=== PATIENT | female | born 1980 | race Caucasian/White ===

== ENCOUNTER 2019-07-21 13:21 | Emergency (ER) | payer OTHER ==
[~2019-07-21] VITALS: Ht 170.2 cm; Wt 113.4 kg
--- OUTSIDE RECORDS SUMMARY | ~2019-07-21 | XMS | Encounter Summary ---
Demographics + + + | Address | [address] | | | [place] [address] | + + + | Home Phone | | + + + | Preferred Language | Unknown | + + + | Marital Status | Single | + + + | Mandaeism Affiliation | Unknown | + + + | Race | Unknown | + + + | Ethnic Group | Other Race | + + + Author + + + | Author | Formerly [facility] | + + + | Organization | [facility] | + + + | Address | Unknown | + + + | Phone | Unavailable | + + + Care Team Providers + +------+ + | Care Spring Assembler Name | Role | Phone | + +------+ + PCP | Unavailable | + +------+ + Encounter Details +--------+ + + + + | Date | Type | Department | Care Team | Description | +--------+ + + + + | 09/13/ | Lab | LAB SURGICAL | DamonPeña jacinto, | | | 2018 | Requisition | PATHOLOGY [address] | MD [address] [facility] | | | | | [address] | Dept/[facility], | | | | | [place], [place] | [place] [address] | | | | | [address] | [phone] | | | | | | | [...] | Electronically | | Pathologic | biopsy ([id number]; | | DEPARTMENT | signed by | | Diagnosis | 09/03/18): - Mild portal | | OF | Robert Miller | | | inflammation, reactive | | PATHOLOGY | Lanckajal, | | | biliary changes and | | | ,PhD on | | | focal cholate stasis | | | 09/19/2018 at | | | [see comment] - Minimal | | | 2:55 PM | | | macrovesicular steatosis | | [...] follow-up | | | | | | information.Robert | | | | | | MD Talon, PhD | | | | | | | | | | | | PathologistPathology, | | | | | | Formerly [facility] & [employer] | | | | | | [place] PAS/D is | | | | | [...] | | DEPARTMENT | | | | [facility] | | OF | | | | [place], [place] | | PATHOLOGY | | | | [id number] Accession | | | | | | Number: [id number] | | | | | | Collection [...] | + + + + + | [facility] | [address] | [place] [address] | | | PATHOLOGY | [address] | | | + + + + + documented in this encounter Visit Diagnoses + + | Diagnosis | + + | Cholecystitis Cholecystitis, unspecified | + + documented in this encounter
--- OUTSIDE RECORDS SUMMARY | ~2019-07-21 | XMS | Encounter Summary ---
Demographics + + + | Address | [address] | | | [place] [address] | + + + | Home Phone | | + + + | Preferred Language | Unknown | + + + | Marital Status | Single | + + + | Restorationist Affiliation | Unknown | + + + | Race | Unknown | + + + | Ethnic Group | Other Race | + + + Author + + + | Author | [facility]ly [facility] | + + + | Organization | [facility] | + + + | Address | Unknown | + + + | Phone | Unavailable | + + + Care Team Providers + +------+ + | Care Area Sales Manager Name | Role | Phone | + [...] PATHOLOGY [address] | MD [address] [facility] | | | | | [address] | Dept/[facility], | | | | | [place], [place] | [place] [address] | | | | | [address] | [phone] | | | | | | | [...] | Electronically | | Pathologic | biopsy ([id number]; | | DEPARTMENT | signed by | [...] | | | | | | Formerly [facility] & [employer] | | | | | | [place] PAS/D is | | | | | [...] | | OF | | | | [place], [place] | | PATHOLOGY | | | | [id number] Accession | | | | | | Number: [id number] | | | | | | Collection [...] | + + + + + | [facility] | [address] | [place] [address] | | | PATHOLOGY | [address] | | | + + + + + documented in this encounter Visit Diagnoses + + | Diagnosis | + + | Cholecystitis Cholecystitis, unspecified | + + documented in this encounter
--- OUTSIDE RECORDS SUMMARY | ~2019-07-21 | XMS | Clinical Summary ---
Demographics + + + | Address | [address] | | | [place] [address] | + + + | Home Phone | | + + + | Preferred Language | Unknown | + + + | Marital Status | Single | + + + | Sabianism Affiliation | Unknown | + + + [...] Team Providers + +------+ + | Care Digital Community Manager Name | Role | Phone | + +------+ + PCP | Unavailable | + +------+ + Source Comments FERMIN is fully live on both [facility] Ambulatory and [facility] InPatient.[facility] Allergies Not on File Medications Not on [...] Signs Not on file Plan of Treatment Not on file Results Not on filefrom Last 3 Months"
--- OUTSIDE RECORDS SUMMARY | ~2019-07-21 | XMS | Clinical Summary ---
Demographics + + + | Address | [address] | | | [place] [address] | + + + | Home Phone | | + + + | Preferred Language | Unknown | + + + | Marital Status | Single | + + + | Bahai Affiliation | Unknown | + + + [...] Team Providers + +------+ + | Care Foundry Worker General Name | Role | Phone | + +------+ + PCP | Unavailable | + +------+ + Source Comments FERMIN is fully live on both [facility] Ambulatory and [facility] InPatient.[facility] Allergies Not on File Medications Not [...]
[~2019-07-21 13:21] MED LIST: ADVAIR 100-501 EACH INH; BIOTIN1 MG PO; CELEBREX200 MG PO; CLARITIN10 M2 PO; CYCLOBENZAPRINE10 MG PO; LEXAPRO5 MG PO; LITHIUM CARBON300 MG PO; POTASSIUM600 MG PO; PRAZOSIN HCL1 MG PO; PROAIR HFA8.5 GM INH
== END 2019-07-21 14:48 | disposition home or self-care (01) ==
LOC: ED 13:21
DX: S89.91XA Unspecified injury of right lower leg, initial encounter (principal); X50.9XXA Other and unspecified overexertion or strenuous movements or postures, initial encounter; F31.9 Bipolar disorder, unspecified; F32.9 Major depressive disorder, single episode, unspecified; F43.10 Post-traumatic stress disorder, unspecified; Z88.5 Allergy status to narcotic agent; Z88.0 Allergy status to penicillin; Z79.899 Other long term (current) drug therapy
CPT/HCPCS: 73560; 73610; 99283-25

== ENCOUNTER 2020-03-08 07:45 | Day surgery (SDC) | payer OTHER ==
--- NOTE | 2020-02-24 17:47 | NUR ---
PATIENT SEEN TODAY ON 02/24/20 FOR RIGHT TOTAL KNEE WITH VIK SCHEDULED ON 03/08/20. PATIENT REPORTS LIVING IN A TRAVEL TRAILER AT [facility] WITH HER SIGNIFICANT OTHER. REPORTS 2 [address]PS INTO HOME WITH NO RAIL. PATIENT STATES SHE DOES NOT HAVE A FWW OR SHOWER CHAIR, [facility]ERT [employer] PAMPHLET AND LOAN AGREEMENT PAPERWORK PROVIDED. PATIENT STATES SHE WILL F/U WITH ROBERT, ADVISED TO BRING IN FWW ON DAY OF PROCEDURE, VERBALIZED UNDERSTANDING. PATIENT STATES SHE USES [employer] SHOWER SITE. PATIENT TO MAKE ARRANGEMENTS TO USE [facility] SIDE OF FACILITYS WITH WALK-IN SHOWER AND HAND-HELD SHOWER HEAD WITH RV 3D ARTIST. PATIENT DECLINES NEED FOR HOME HEALTH AND STATES SHE ALREADY USES MEDICAL TRANSPORT. PATIENT SCHEDULED FOR JOINT BOOT CAMP AT [facility] OUTPATIENT P/T ON 02/25/20 @9 AM. PATIENT WILL CONTINUE P/T AT SAME SITE AND WILL USE MEDICAL TRANSPORT FOR APPOINTMENTS. PATIENT STATES SIGNIFICANT OTHER WILL PROVIDE ASSISTANCE AT HOME ONCE DISCAHRGED.
[~2020-03-08] VITALS: Ht 170.2 cm; Wt 104.3 kg
[~2020-03-08 07:45] MED LIST changes: +CETIRIZINE HCL10 MG PO; +IRON18 MG PO; +PHENTERMINE H37.5 MG PO; +VITAMIN C1000 MG PO
--- NOTE | 2020-03-08 10:52 | NUR ---
03/08/20 1051 Sheets,Josephine 1041 PT ARRIVED TO PACU ON 6L VIA MASK WITH ORAL AIRWAY IN PLACE. JAW THRUST USED OFF AND ON TO MAINTAIN AIRWAY. 1042 JAW THURST NO LONGER NEEDED, PT REAMINS NONAROUSBALE TO PAINFUL STIMULI. CRYO CUFF IN PLACE.
--- NOTE | 2020-03-08 11:15 | NUR ---
PATIENT BACK TO FLOOR FROM PACU, BEDSIDE REPORT FROM ARA CURRY. PATIENT AWAKE 2L NC ON 98% O2 SAT. PROVIDED ICE WATER AND SNACK. DRESSING INTACT, KRYO IN PLACE. CALL LIGHT WITHIN REACH. NO OTHER NEEDS AT THIS TIME.
--- NOTE | 2020-03-08 12:20 | NUR ---
PATIENT SATURATED SHEETS WITH URINE AFTER SNEEZING. PROVIDED BED CHANGE. PATIENT EYES WATERING AND NOSE RUNNING, PATIENT STATED " THIS STARTED ALL OF A SUDDEN" PROVIDED PATIENT WITH TISSUES. PATIENT TOLERATING FOOD AND DRINK, NO NAUSEA. RATES PAIN 0/10 ON PAIN SCALE.
--- NOTE | 2020-03-08 13:30 | NUR ---
PATIENT ATTEMPTED TO TRANSFER TO [facility]. DANGLED AT SIDE OF BED WELL, WITH 2 PERSON ASSIST. PATIENT THEN TREMBLED AND UNABLE TO BEAR WEIGHT. BACK TO BED PLACED BED CRAIN. CALL LIGHT WITHIN REACH.
--- NOTE | 2020-03-08 13:45 | NUR ---
PHYSICAL THERAPY TO ROOM TO EVALUATE.
--- NOTE | 2020-03-08 14:30 | NUR ---
PATIENT TO MED/SURG SUCCESSFULLY DID STAIRS. BACK TO ROOM. PHYSICAL THERAPY OKAYED TO GO HOME. VSS. CALL LIGHT WITHIN REACH.
[2020-03-08] MEDS ORDERED: CELECOXIB200 MG PO (15:30)
[2020-03-08] MEDS ORDERED: ASPIRIN EC325 MG PO (15:30)
[2020-03-08] MEDS ORDERED: GABAPENTIN600 MG PO (15:31)
[2020-03-08] MEDS ORDERED: SENNA LAX8.6 MG PO (15:31)
[2020-03-08] MEDS ORDERED: OXYCODONE HCL5 MG PO (15:31)
--- NOTE | 2020-03-08 16:00 | NUR ---
PATIENT ATTEMPTED TO DRESS WHEN SATURATED PAD AND PANTS WITH URINE. UP TO BSC, PATIENT ABLE TO VOID 250 ML. PATIENT THEN BLADDERSCAN >1,[address] MALAGON, VERBAL ORDER FOR STRAIGHT CATH. PATIENT TOLERATED PROCEDURE WELL. 1,100 ML OF URINE DRAINED INTO URINE BAG. PVR ZERO. PATIENT BACK TO BED, INSTRUCTED TO SIP ON FLUIDS AND WHEN ABLE TO VOID AGAIN TO CALL. CALL LIGHT WITHIN REACH.
--- NOTE | 2020-03-08 16:45 | NUR ---
BLADDER SCAN PATIENT 200 ML, UP TO BSC VOIDED 250 ML. PVR 0. PROVIDED PATIENT WITH DISCHARGE INSTRUCTION, PATIENT HAS GIANNI DRESSING FOR APPOINMENT IN OFFICE. ANSWERED QUESTIONS AND CONCERNS. VSS. PROVIDED WHEELCHAIR RIDE TO FRONT. PATIENT TRANSFERED INTO [facility].
--- NOTE | 2020-03-09 08:18 | OR ---
[facility] [address] [place], [place] [address] Signed DATE OF OPERATION: 03/08/2020 SURGEON: Ronald Benavidez MD PREOPERATIVE DIAGNOSIS: Severe degenerative joint disease, right knee. POSTOPERATIVE DIAGNOSIS: Severe degenerative joint disease, right knee. PROCEDURE: Right total knee arthroplasty with Zack. PROFESSOR OF ENVIRONMENTAL SCIENCE: 1. Sanam Mcfarlane PA-C. Sanam was present and critical for all portions of procedure. 2. Clinical PAS. ANESTHESIA: Spinal. BLOOD LOSS: 200 mL. TOURNIQUET TIME: Zero. IMPLANTS: Bob Triathlon size 3 femur, size 4 tibia, 9 mm poly, and 35 mm patella. BRIEF HISTORY: Dee Dee is a 39-year-old female with progressive worsening of arthritis in valgus knee. Nonoperating treatment was unsuccessful in managing her symptoms. She wished to proceed with knee replacement. Risks and benefits of operative treatment were discussed with her and she elected to proceed. DESCRIPTION OF PROCEDURE: Once consent was obtained, she was taken to the operating room after adequate anesthesia was placed on operating room table. All downside pressure points were well padded. The right leg was prepped and draped in a standard sterile fashion. No tourniquet was Electronically Signed By: RONALD BENAVIDEZ MD 03/09/20 0818 PATIENT NAME: DEE DEE NUÑEZ OPERATIVE REPORT DATE OF : 76 REPORT #: [id number] PHYSICIAN: RONALD BENAVIDEZ MD PCP: AALIYAH BURT MD REPORT IS CONFIDENTIAL AND NOT TO BE RELEASED WITHOUT AUTHORIZATION [facility] [address] [place], [place] [address] Signed placed. The knee was approached through standard anterior incision, taken through skin and subcutaneous tissue. Sub-vastus arthrotomy was performed and the infrapatellar fat pad was excised, the MCL was elevated with a sleeve around the posteromedial corner. All bleeders were cauterized as we went. The anterior horn of the lateral meniscus was gone. Anterior horn of the medial meniscus was transected as was the ACL. The PCL was found to be intact. The knee was flexed and the checkpoints and computer rays were placed in the femur and tibia and the leg was registered with the computer. Checkpoints were then registered on the distal femur and proximal tibia. Once this was accomplished, the osteophytes removed and soft tissue tension poses were taken. Adjustments were then made to the computer by increasing the valgus 3 degrees on the tibia. The robot was then brought in and the proximal tibial cut was made. The three cuts were made on the femur with straight blade, 2 cuts with the curved blade. The bone was then excised. Trials were then positioned. The knee was taken into full extension. The knee was quite stable throughout. The flexion and extension gaps were symmetric and matched our plan. The patella was cut, sized and drilled for 35 patella. The distal femoral drill holes were made and tibia was finished using the keel punch and given her age, we did decide use a non-cemented prosthesis. Drill holes were made in the tibia. The tibia was impacted in position first followed by the polyethylene. The femur was impacted in position first. The knee was extended and nicely loaded. The patella was clamped into position and the clamp was removed. The knee was taken through range of motion and again found to be stable and met our preoperative plan. Periarticular soft tissues were injected with 100 mL of ropivacaine and Toradol mixture. The On-Q pain pump was placed percutaneously into the adductor canal from suprapatellar pouch. The wound was copiously irrigated with antibiotic solution and the arthrotomy was closed using #2 Stratafix, #0 Stratafix for subcutaneous tissue and ZipLine for the skin. A GIANNI wound VAC dressing was applied with Puneet wrap. She was awakened and taken to the recovery room in satisfactory condition. All sponge, needle, and instrument counts were correct. Ronald Benavidez MD BA/MODL /[id number] Copies: Electronically Signed By: RONALD BENAVIDEZ MD 03/09/20 0818 PATIENT NAME: DEE DEE NUÑEZ OPERATIVE REPORT DATE OF : 76 REPORT #: [id number] PHYSICIAN: RONALD BENAVIDEZ MD PCP: AALIYAH BURT MD REPORT IS CONFIDENTIAL AND NOT TO BE RELEASED WITHOUT AUTHORIZATION [address] [place] [address] Signed ~ Electronically Signed By: RONALD BENAVIDEZ MD 03/09/20 0818 PATIENT NAME: DEE DEEFRANCINE HAMPTON OPERATIVE REPORT DATE OF : 76 REPORT #: [id number] PHYSICIAN: RONALD BENAVIDEZ MD PCP: AALIYAH BURT MD REPORT IS CONFIDENTIAL AND NOT TO BE RELEASED WITHOUT AUTHORIZATION
== END 2020-03-08 16:45 | disposition home or self-care (01) ==
LOC: DS 07:45
PROVIDERS: Specialist
PROC: 8E0YXBZ Computer Assisted Procedure of Lower Extremity (ICD-10-PCS; 2020-03-08)
PROC: 0SRC0JA Replacement of Right Knee Joint with Synthetic Substitute, Uncemented, Open Approach (ICD-10-PCS; principal; 2020-03-08 09:00)
DX: M17.11 Unilateral primary osteoarthritis, right knee (principal); K21.9 Gastro-esophageal reflux disease without esophagitis; J45.909 Unspecified asthma, uncomplicated; F41.9 Anxiety disorder, unspecified; G47.30 Sleep apnea, unspecified; F17.210 Nicotine dependence, cigarettes, uncomplicated; E66.01 Morbid (severe) obesity due to excess calories; Z68.35 Body mass index [BMI] 35.0-35.9, adult; Z79.899 Other long term (current) drug therapy; Z88.0 Allergy status to penicillin; Z88.5 Allergy status to narcotic agent
CPT/HCPCS: 01402; 64447; 64450; 76942; 84703; 97110; 97116; 97162; C1776; J0690; J0735; J1100; J1885; J2001; J2250; J2405; J2704; J2765; J2795; J3010; J7121

== ENCOUNTER 2020-03-13 15:59 | Emergency (ER) | payer OTHER ==
[~2020-03-13] VITALS: Ht 170.2 cm; Wt 104.3 kg
--- OUTSIDE RECORDS SUMMARY | ~2020-03-13 | XMS | Encounter Summary ---
Demographics + + + | Address | [address] | | | [place] [address] | + + + | Home Phone | | + + + | Preferred Language | Unknown | + + + | Marital Status | Single | + + + | Rastafari Affiliation | Unknown | + + + | Race | Unknown | + + + | Ethnic Group | Not or | + + + Author + + + | Author | [facility] | + + + | Organization | [facility] | + + + | Address | Unknown | + + + | Phone | Unavailable | + + + Support + + +---------+ + | Name | Relationship | Address | Phone | + + +---------+ + | Gemma Garcia | ECON | Unknown | | + + +---------+ + Care Team Providers + +------+ + | Care Builder Operator Name | Role | Phone | + +------+ + | Rashad Luna MD | PCP | | + +------+ + Encounter Details +--------+ + + + + | Date | Type | Department | Care Team | Description | +--------+ + + + + | 09/13/ | Lab | LAB SURGICAL | Peña Burnette, | | | 2019 | Requisition | PATHOLOGY [address] | [address] | | | | | [address] | Dept/[facility], | | | | | [place], [place] | [place] [address] | | | | | [address] | [phone] | | | | | | | | +--------+ + + + + Social History + +-------+ +--------+------+ | Tobacco Use | Types | Packs/Day | Years | Date | | | | | Used | | + +-------+ +--------+------+ | Never Assessed | | | | | + +-------+ +--------+------+ + + + | Sex Assigned at | Date Recorded | | | | + + + | Not on file | | + + + + + + + | Job Start Date | Occupation | Industry | + + + + | Not on file | Not on file | Not on file | + + + + + + + + | Travel History | Travel Start | Travel End | + + + + + + | No recent travel history available. | + + documented as of this encounter Plan of Treatment Not on filedocumented as of this encounter Procedures + +--------+ + + + | Procedure Name | Priori | Date/Time | Associated Diagnosis | Comments | | | ty | | | | + +--------+ + + + | PATHOLOGY CONSULT - | Routin | 09/03/2018 | Cholecystitis | Results for this | | REVIEW OUTSIDE | e | 9:09 AM | | procedure are in the | | SLIDES | | PST | | results section. | + +--------+ + + + documented in this encounter Results PATHOLOGY CONSULT - REVIEW OUTSIDE SLIDES (09/03/2018 9:09 AM PST) + + + + + + | Component | Value | Ref Range | Performed | Pathologist | | | | | At | Signature | + + + + + + | Clinical | Liver biopsy at time of | | [facility] | | | History | cholecystectomy due to | | DEPARTMENT | | | | elevated liver chemistry | | OF | | | | tests. | | PATHOLOGY | | + + + + + + | Final | Liver, core needle | | [facility] | Electronically | | Pathologic | biopsy ([id number]; | | DEPARTMENT | signed by | | Diagnosis | 09/03/18): - Mild portal | | OF | Zoroastrian | | | inflammation, reactive | | PATHOLOGY | [place] on | | | biliary changes and | | | 09/19/2018 at | | | focal cholate stasis | | | 2:55 PM | | | [see comment] - Minimal | | | | | | macrovesicular steatosis | | | | | | (~5%) - No pathologic | | | | | | increase in | | | | | | fibrosisComment: | | | | | | Vasile thank you for | | | | | | sending this case. I | | | | | | agree that the changes | | | | | | are mild and | | | | | | non-specific. Per | | | | | | report this biopsy was | | | | | | taken during a | | | | | | cholecystectomy | | | | | | procedure. I think some | | | | | | of the changes such as | | | | | | reactive biliary | | | | | | epithelium, focal | | | | | | ductular reaction, | | | | | | periductal neutrophils | | | | | | and focal cholate stasis | | | | | | suggest mild biliary | | | | | | injury. A copper stain | | | | | | is negative. Given the | | | | | | history this could be | | | | | | related to inflammatory | | | | | | changes related to | | | | | | cholecystitis or | | | | | | possibly a partially | | | | | | obstructing | | | | | | stone/choledocolithiasis | | | | | | . Other considerations | | | | | | would be an intrinsic | | | | | | pathologic process such | | | | | | as PSC or PBC but again | | | | | | this biopsy is not | | | | | | diagnostic of either | | | | | | entity. A drug effect | | | | | | is a possible diagnosis | | | | | | if other entities are | | | | | | reasonably excluded. | | | | | | Steatosis is minimal and | | | | | | due to the presence of | | | | | | "surgical hepatitis" in | | | | | | the lobular parenchyma | | | | | | it is difficult to | | | | | | assess for pathologic | | | | | | inflammation. I don't | | | | | | see ballooning | | | | | | degeneration so I think | | | | | | steatohepatitis is | | | | | | unlikely; but, steatosis | | | | | | can be variable and | | | | | | risk factors for | | | | | | steatosis and | | | | | | steatohepatitis should | | | | | | be reviewed. Again, | | | | | | thank you for sending | | | | | | this case. At this | | | | | | point the clinical | | | | | | findings will be needed | | | | | | to further refine a | | | | | | diagnosis. Please let | | | | | | me know if there are any | | | | | | questions or if there | | | | | | is related follow-up | | | | | | information.Zoroastrian | | | | | | MD Talon, PhD | | | | | | | | | | | | PathologistPathology, | | | | | | [facility] | | | | | | [place] PAS/D is | | | | | | negative for cytoplasmic | | | | | | hepatocyte | | | | | | inclusionsCK7 shows | | | | | | focal ductular | | | | | | reaction.My electronic | | | | | | signature indicates that | | | | | | I have personally | | | | | | reviewed all diagnostic | | | | | | slides, the gross and/or | | | | | | microscopic portion of | | | | | | this report and | | | | | | formulated the final | | | | | | diagnosis. | | | | + + + + + + | Materials | Specimen AReferring | | [facility] | | | Received | Institution: | | DEPARTMENT | | | | [facility] | | OF | | | | [place], [place] | | PATHOLOGY | | | | [id number] Accession | | | | | | Number: [id number] | | | | | | Collection Date: | | | | | | 09/03/2018Sublabeled H&E | | | | | | Specials Blocks B 1 4 1 | | | | | | (B) | | | | + + + + + + | Ancillary | Analyte specific | | [facility] | | | Information | reagents are used in | | DEPARTMENT | | | | many laboratory tests | | OF | | | | necessary for standard | | PATHOLOGY | | | | medical care. This test | | | | | | was developed and its | | | | | | performance | | | | | | characteristics | | | | | | determined by [facility] | | | | | | laboratories. It has | | | | | | not been cleared or | | | | | | approved by the US Food | | | | | | and Drug Administration | | | | | | (FDA). FDA does not | | | | | | require this test to go | | | | | | through premarket FDA | | | | | | review. This test is | | | | | | used for clinical | | | | | | purposes. It should not | | | | | | be regarded as | | | | | | investigational or for | | | | | | research. This | | | | | | laboratory is certified | | | | | | under the Clinical | | | | | | Laboratory Improvement | | | | | | Amendments (CLIA) as | | | | | | qualified to perform | | | | | | high complexity clinical | | | | | | laboratory testing. | | | | + + + + + + + + | Specimen | + + | Slide-Block | + + + + + + + | Performing | Address | City/State/Zipcode | Phone Number | | Organization | | | | + + + + + | [facility] | [address] | [place] [address] | | | PATHOLOGY | [address] | | | + + + + + documented in this encounter Visit Diagnoses + + | Diagnosis | + + | Cholecystitis Cholecystitis, unspecified | + + documented in this encounter
--- OUTSIDE RECORDS SUMMARY | ~2020-03-13 | XMS | Clinical Summary ---
Demographics + + + | Address | [address] | | | [place] [address] | + + + | Home Phone | | + + + | Preferred Language | Unknown | + + + | Marital Status | Single | + + + | Caodaism Affiliation | Unknown | + + + | Race | Unknown | + + + | Ethnic Group | Not or | + + + Author + + + | Author | [facility] | + + + | Organization | [facility] | + + + | Address | Unknown | + + + | Phone | Unavailable | + + + Support + + +---------+ + | Name | Relationship | Address | Phone | + + +---------+ + | Gemma Garcia | ECON | Unknown | | + + +---------+ + Care Team Providers + +------+ + | Care Landscape Gardener Name | Role | Phone | + +------+ + | Rashad Luna MD | PCP | | + +------+ + Source Comments FERMIN is fully live on both [facility] Ambulatory and [facility] InPatient.[facility] Allergies Not on File Medications Not on file Active Problems Not on file Social History + +-------+ +--------+------+ | Tobacco [...] recent travel history available. | + + Last Filed Vital Signs Not on file Plan of Treatment + + + + + | Health Maintenance | Due Date | Last Done | Comments | + + + + + | Influenza (Flu) | | | | | vaccination (#1) | 9 | | | + + + + + | Pneumococcal | Aged Out | | No longer eligible | | vaccination | | | based on patient's | | | | | age to complete this | | | | | topic | + + + + + Results Not on filefrom Last 3 Months Insurance + +--------+ +--------+ + +--------+ | Payer | Benefi | Subscriber | Effect | Phone | Address | Type | | | t Plan | ID | melvin | | | | | | / | | Dates | | | | | | Group | | | | | | + +--------+ +--------+ + +--------+ | [place]ICA[place] | OHP | xxxxxxxx | | [phone] | [address] | | | PLUS | | [phone] | id | | | OPEN | | esent | | [place], [place] | | | | CARD | | | | [id number] | | + +--------+ +--------+ + +--------+ + +--------+ +--------+ + + | Guarantor Name | Accoun | Relation to | Date | Phone | Billing Address | | | t Type | Patient | of | | | | | | | | | | + +--------+ +--------+ + + | Lashay Jaramillo | Person | Self [birth year] | [address] | | Araceli | al/Fam | | 1980 | [phone] | [address] [place] | | | [place] | | | 2 (Home) | [address] | + +--------+ +--------+ + +"
--- OUTSIDE RECORDS SUMMARY | ~2020-03-13 | XMS | Clinical Summary ---
Demographics + + + | Address | [address] | | | [place] [id number] | + + + | Home Phone | | + + + | Preferred Language | Unknown | + + + | Marital Status | Single | + + + | Jew Affiliation | Unknown | + + + [...] Team Providers + +------+ + | Care Mechanical Laboratory Technician Name | Role | Phone | + +------+ + | Rashad Luna MD | PCP | | + +------+ + Source Comments [facility] is fully live on both [facility] Ambulatory and [facility] InPatient.[facility] Allergies Not on File Medications Not on [...] [place] | [facility] | [phone] | | [phone] | [address] | [address] | | | PL[address] | | [phone] | id | | | OPEN | | esent | | [place], [place] | | | | CARD | | | | [phone] | | + +--------+ +--------+ + +--------+ [...] Araceli | al/Fam | | 1980 | [phone] | [address] [place] | | | [place] | | | 2 (Home) | [id number] | + +--------+ +--------+ + +"
--- OUTSIDE RECORDS SUMMARY | ~2020-03-13 | XMS | Encounter Summary ---
Demographics + + + | Address | [address] | | | [place] [id number] | + + + | Home Phone | | + + + | Preferred Language | Unknown | + + + | Marital Status | Single | + + + | Hindu Affiliation | Unknown | + + + | Race | Unknown | + + + | Ethnic Group | Not or | + + + Author + + + | Author | [facility] | + + + | Organization | [facility] | + + + | Address | Unknown | + + + | Phone | Unavailable | + + + Support + + +---------+ + | Name | Relationship | Address | Phone | + + +---------+ + | Gemma Garcia | ECON | Unknown | | + + +---------+ + Care Team Providers + +------+ + | Care Chief Digital Media Officer Name | Role | Phone | + [...] Lopez | | | | | [address] | Dept/[facility], | | | | | [place], [place] | [place] [address] | | | | | [address] | [phone] | | | | | | | [...] | Electronically | | Pathologic | biopsy ([id number]; | | DEPARTMENT | signed by | | Diagnosis | 09/03/18): - Mild portal | | OF | Mosque | | | inflammation, reactive | | [...] follow-up | | | | | | information.Mosque | | | | | | MD Talon, PhD | | | | | | | | | | | | PathologistPathology, | | | | | | [facility] | | | | | | [place] PAS/D is | | | | | [...] | | DEPARTMENT | | | | [facility] | | OF | | | | [place], [place] | | PATHOLOGY | | | | [id number] Accession | | | | | | Number: [id number] | | | | | | Collection [...] | + + + + + | [facility] | [address] | [place] [address] | | | PATHOLOGY | [address] | | | + + + + + documented in this encounter Visit Diagnoses + + | Diagnosis | + + | Cholecystitis Cholecystitis, unspecified | + + documented in this encounter
[~2020-03-13 15:59] MED LIST changes: +ASPIRIN EC325 MG PO; +CELECOXIB200 MG PO; +GABAPENTIN600 MG PO; +OXYCODONE HCL5 MG PO; +SENNA LAX8.6 MG PO
--- OUTSIDE RECORDS SUMMARY | 2020-03-13 16:02 | XMS ---
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 Care Guidelines exist for the following facilities: [facility] ( 12/31/2017 ) [facility] VISIT COUNT (12 MO.) [address] [facility] TOTAL 2 NOTE: Visits indicate total known visits. ED/UCC VISIT TRACKING (12 MO.) 03/13/2020 16:00 [facility] [place] TYPE: Emergency COMPLAINT: - POST OP PROBLEM/KNEE PAIN 07/21/2019 13:22 [facility] [place] TYPE: Emergency COMPLAINT: - LEG PAIN, POSSIBLE INJ DIAGNOSES: - Other and unspecified overexertion or strenuous movements or - Allergy status to narcotic agent status - Unspecified injury of right lower leg, initial encounter - Pain in right knee - Post-traumatic stress disorder, unspecified - Allergy status to penicillin - Other terminal block assembler (current) drug therapy - Bipolar disorder, unspecified - Major depressive disorder, single episode, unspecified INPATIENT VISIT TRACKING (12 MO.) No inpatient visits to display in this time frame [email or web address]
[2020-03-13] MEDS ORDERED: OXYCODONE HCL5 MG PO (18:07)
== END 2020-03-13 18:17 | disposition home or self-care (01) ==
LOC: ED 15:59
DX: G89.18 Other acute postprocedural pain (principal); M25.561 Pain in right knee; F31.9 Bipolar disorder, unspecified; J45.909 Unspecified asthma, uncomplicated; F41.9 Anxiety disorder, unspecified; F43.10 Post-traumatic stress disorder, unspecified; Z87.891 Personal history of nicotine dependence; Z88.5 Allergy status to narcotic agent; Z88.0 Allergy status to penicillin; Z79.899 Other long term (current) drug therapy; Z79.82 Long term (current) use of aspirin; Z96.651 Presence of right artificial knee joint
CPT/HCPCS: 99283

== ENCOUNTER 2020-09-15 06:48 | Emergency (ER) | payer OTHER ==
[~2020-09-15] VITALS: Ht 170.2 cm; Wt 104.8 kg
[~2020-09-15 06:48] MED LIST changes: +DILAUDID2 MG PO; +SINGULAIR10 MG PO
== END 2020-09-15 08:40 | disposition home or self-care (01) ==
LOC: ED 06:48
DX: G89.18 Other acute postprocedural pain (principal); M25.562 Pain in left knee; J45.909 Unspecified asthma, uncomplicated; Z88.5 Allergy status to narcotic agent; Z88.0 Allergy status to penicillin; Z79.899 Other long term (current) drug therapy; Z79.82 Long term (current) use of aspirin
CPT/HCPCS: 96372; 99283; J1885